=== PATIENT | female | born 2005 | race Caucasian/White ===

== ENCOUNTER 2025-09-05 14:01 | Inpatient (IN) | payer OTHER ==
[~2025-09-05] VITALS: Ht 167.6 cm; Wt 68.0 kg
[2025-09-05 15:03] LABS: PLATELET COUNT (AUTO) 273 K/uL (179-408); RED BLOOD CELL COUNT(AUTO) 4.79 MIL/uL (3.63-4.92); RED CELL DISTRIBUTION WIDTH 14.1 % (12.3-17.7); WHITE BLOOD COUNT (AUTO) 13.0 K/uL (3.8-11.8)
[2025-09-05 15:10] LABS: CREATININE 0.9 mg/dL (0.6-1.3); SODIUM SERUM 139 mmol/L (136-145); UREA NITROGEN, BLOOD 19 mg/dL (7-18)
[2025-09-05] MEDS: IV NORMAL SALINE 1000 ML BAG IV ONE (15:23)
[2025-09-05 15:24] LABS: ASPARTATE AMINOTRANSFERASE 84 U/L (15-37); TOTAL PROTEIN, SERUM 8.0 g/dL (6.4-8.2)
[2025-09-05 17:40] LABS: *BILIRUBIN,URIN 1+ (NEGATIVE); *BLOOD, URINE 1+ (NEGATIVE); *COLOR,URINE YELLOW (YELLOW); *KETONES,URINE 4+ (NEGATIVE); *PROTEIN,URINE TRACE (NEGATIVE); *UROBILINOGEN,URINE 1.0 E.U./dl (NORMAL); LEUKOCYTE ESTERASE ,URINE NEGATIVE (NEGATIVE); NITRITE, URINE NEGATIVE (NEGATIVE); UGLUCOSE NEGATIVE (NEGATIVE)
[2025-09-05 17:42] LABS: *CLARITY,URINE HAZY (CLEAR)
[2025-09-05 17:44] LABS: *URINE HCG, QUAL NEGATIVE (NEGATIVE)
[2025-09-05 17:51] LABS: *AMPHETAMINE, URINE NEGATIVE (NEGATIVE); *BARBITURATE, URINE NEGATIVE (NEGATIVE); *BENZODIAZEPINE, URINE NEGATIVE (NEGATIVE); *CANNABINOID, URINE POSITIVE (NEGATIVE); *COCCAINE, URINE NEGATIVE (NEGATIVE); *OPIATE, URINE NEGATIVE (NEGATIVE); *PHENCYCLIDINE SCREEN,URINE NEGATIVE (NEGATIVE); FENTANYL, URINE NEGATIVE (NEGATIVE)
[2025-09-05 17:53] LABS: SQUAMOUS EPITHELIAL CELL,UR MODERATE /HPF (NONE SEEN)
[2025-09-05] MEDS ORDERED: MAGNESIUM HYDROXIDE 30 ML LIQUID UDC PO PRN (18:45)
[2025-09-05] MEDS ORDERED: ACETAMINOPHEN 325 MG TABLET PO PRN (18:45)
[2025-09-05] MEDS ORDERED: ONDANSETRON 4 MG/2 ML VIAL IV PRN (18:45)
[2025-09-05] MEDS ORDERED: REMEDY ESSENTIAL ZINC PASTE 113 GM TP PRN (18:45)
[2025-09-05 19:00] VITALS: BP 127/74
[2025-09-05 19:43] VITALS: BP 123/52; TEMP 98.4; O2SAT 97
[2025-09-05] MEDS: BLOOD SUGAR DIAGNOSTIC 1 EACH STRIP VI SCH (20:20)
[2025-09-05] MEDS: IV 1/2NS 1000 ML 1,000 ML IV PRN (20:21)
[2025-09-06 00:05] VITALS: BP 107/62; TEMP 98.2; O2SAT 98
[2025-09-06 01:25] LABS: ASPARTATE AMINOTRANSFERASE 65.0 U/L (15-37); CREATININE 0.7 mg/dL (0.6-1.3); SODIUM SERUM 137.0 mmol/L (136-145); TOTAL PROTEIN, SERUM 6.7 g/dL (6.4-8.2); UREA NITROGEN, BLOOD 15.0 mg/dL (7-18)
[2025-09-06 05:13] VITALS: BP 99/56; TEMP 98.1; O2SAT 99
[2025-09-06 05:23] LABS: PLATELET COUNT (AUTO) 211 K/uL (179-408); RED BLOOD CELL COUNT(AUTO) 4.24 MIL/uL (3.63-4.92); RED CELL DISTRIBUTION WIDTH 14.0 % (12.3-17.7); WHITE BLOOD COUNT (AUTO) 8.4 K/uL (3.8-11.8)
[2025-09-06 05:43] LABS: CREATININE 0.7 mg/dL (0.6-1.3); SODIUM SERUM 137 mmol/L (136-145); UREA NITROGEN, BLOOD 13 mg/dL (7-18)
[2025-09-06] MEDS: FAMOTIDINE 20 MG TABLET PO SCH (08:33)
[2025-09-06] MEDS ORDERED: FAMOTIDINE 20 MG TABLET PO SCH (09:00)
[2025-09-06 09:34] LABS: CREATININE 0.7 mg/dL (0.6-1.3); SODIUM SERUM 138 mmol/L (136-145); UREA NITROGEN, BLOOD 12 mg/dL (7-18)
[2025-09-06 12:00] VITALS: BP 124/78; TEMP 98; O2SAT 99
[2025-09-06] MEDS ORDERED: LITH150C PO (13:49)
[2025-09-06 13:52] LABS: CREATININE 0.8 mg/dL (0.6-1.3); SODIUM SERUM 138 mmol/L (136-145); UREA NITROGEN, BLOOD 9 mg/dL (7-18)
[2025-09-06 16:00] VITALS: BP 113/60; TEMP 98.5; O2SAT 98
[2025-09-06 19:53] VITALS: BP 123/76; TEMP 97.9; O2SAT 97
[2025-09-06] MEDS ORDERED: LITHIUM CARBONATE 150 MG CAPSULE PO SCH (21:00)
== END 2025-09-06 20:35 | DRG 817 ==
LOC: ER 14:01 → TELE3 19:01 → MEDSURG3 09-06 09:35
PROVIDERS: ADMIT Student in an Organized Health Care Education/Training Program; ATTEND Student in an Organized Health Care Education/Training Program
DX: T50.992A Poisoning by other drugs, medicaments and biological substances, intentional self-harm, initial encounter (principal); R45.851 Suicidal ideations; Y92.039 Unspecified place in apartment as the place of occurrence of the external cause; F39 Unspecified mood [affective] disorder; F31.9 Bipolar disorder, unspecified; F60.3 Borderline personality disorder
CPT/HCPCS: 36415; 83605; 83735; 84100; 84703; 85025; 93005; 98960; A4663; G0378; J7040